=== PATIENT | female | born 2005 | race African-American/Black ===

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

== ENCOUNTER 2023-07-07 17:29 | Emergency (ER) | payer MEDICAID ==
[~2023-07-07] VITALS: Ht 157.5 cm; Wt 56.3 kg
[2023-07-07 17:55] VITALS: BP 113/69; PULSE 67; RESP 20; TEMP 98
[2023-07-07] MEDS ORDERED: NEOM0.1O7 OP (20:46)
[2023-07-07 21:02] VITALS: O2SAT 100
== END 2023-07-07 21:15 | disposition home or self-care (01) ==
LOC: ER 17:29
DX: H00.021 Hordeolum internum right upper eyelid (principal)